=== PATIENT | female | born 1945 | race American Indian/Alaskan Native ===

== ENCOUNTER 2016-07-26 07:16 | Day surgery (SDC) | payer MEDICARE ==
[2016-07-26] MEDS ORDERED: NACL 0.9% 1000 ML 1,000 ML IV SCH (08:00)
[2016-07-26] MEDS ORDERED: WATER FOR IRRIG STERILE IR ONE (08:09)
[2016-07-26] MEDS ORDERED: WATER FOR IRRIG STERILE ONE (08:09)
--- NOTE | 2016-07-26 08:37 | Anesthesia Consultation ---
Anesthesia Consult and Med Hx Date of service: 07/26/16 - Airway Anesthetic Teeth Evaluation: Good ROM Head & Neck: Adequate Mental/Hyoid Distance: Adequate Mallampati Class: Class III Intubation Access Assessment: Good - Pulmonary Exam CTA: Yes - Cardiac Exam Cardiac Exam: RRR - Pre-Operative Health Status ASA Pre-Surgery Classification: ASA2 Proposed Anesthetic Plan: MAC - Cardiovascular System Hx Hypertension: Yes - Additional Comments Anesthesia Medical History Comments: HTN. Hypercholesterolemia
--- NOTE | 2016-07-26 08:37 | Anesthesia Day of Surgery ---
Anesthesia Day of Surgery - Day of Surgery Patient Examined: Yes Patient H&P Reviewed: Yes Patient is NPO: Yes
[2016-07-26] MEDS ORDERED: DIPRIVAN 10 MG/ML IV ONE ×2 (08:42)
[2016-07-26] MEDS ORDERED: XYLOCAINE MPF 2% ONE (08:44)
--- NOTE | 2016-07-26 09:18 | Post Operative Note ---
Pre-op diagnosis: h/o polyps Post-op diagnosis: other (small polyps in ascending colon, diverticulosis, internal hemorrhoids) Findings: colonoscopy: ascending colon polyp x 2 (small) left sided diverticulosis Internal hemorrhoids Procedure: Colonoscopy Anesthesia: MAC Surgeon: DASHAWN LEE Estimated blood loss: minimal Pathology: list (colon polyps) Specimen disposition: to lab Condition: stable Disposition: same day
[2016-07-26 09:46] VITALS: BP 125/78
--- NOTE | 2016-07-26 09:46 | Operative Report ---
PREOPERATIVE DIAGNOSES: History of colon polyps, surveillance colonoscopy. POSTOPERATIVE DIAGNOSES: Two small polyps seen in the ascending colon, left-sided diverticulosis, and internal hemorrhoids. ANESTHESIA: Monitored anesthesia care. PROCEDURE: After consent was obtained, the patient was placed in the left lateral decubitus position. The Fujinon colonoscope was advanced with ease to the cecum. The patient tolerated the procedure well. The prep was good. The views of mucosa was good. ESTIMATED BLOOD LOSS: Minimal. COMPLICATIONS: No immediate complications. FINDINGS: There are two small sessile polyps in the ascending colon. One was removed with cold snare (~5 mm size) and the other polyp was removed with cold forceps biopsy (< 5 mm size). Both were retrieved. There was left-sided medium-mouthed diverticulosis. Internal hemorrhoids. IMPRESSION: Two small ascending colon polyps, left-sided diverticulosis, and internal hemorrhoids. RECOMMENDATIONS: 1. Follow pathology. 2. High fiber diet daily. 3. Repeat colonoscopy in 5 years JOB# [id number] NAY[facility]/[place] [place]
--- NOTE | 2016-07-26 12:27 | Post Anesthesia Evaluation ---
- Post Anesthesia Evaluation Patient Participated: Yes Airway Patent: Yes Stable Respiratory Function: Yes Nausea/Vomiting: No Temp > 96.8F: Yes Pain Manageable: Yes Adequeate Hydration: Yes Anesthesia Complications: No
== END 2016-07-26 07:17 | disposition home or self-care (01) ==
LOC: GIO 07:16
PROVIDERS: ATTEND Internal Medicine Gastroenterology
DX: Z12.11 Encounter for screening for malignant neoplasm of colon (principal); D12.2 Benign neoplasm of ascending colon; K57.30 Diverticulosis of large intestine without perforation or abscess without bleeding; K64.8 Other hemorrhoids; I10 Essential (primary) hypertension; E78.00 Pure hypercholesterolemia, unspecified; Z80.0 Family history of malignant neoplasm of digestive organs
CPT/HCPCS: 45380; 45385; 88305; J2704; J7030